=== PATIENT | male | born 1955 | race Caucasian/White ===

== ENCOUNTER 2017-01-25 12:26 | Emergency (ER) | payer OTHER ==
[~2017-01-25] VITALS: Ht 185.4 cm; Wt 90.7 kg
[~2017-01-25 12:26] MED LIST: ALPRAZOLAM PO; MEDROL PO; OXYCONTIN PO; PEPCID PO; PRILOSEC PO; TEGRETOL100 MG PO; [UNRECOGNIZED DRUG - REMARK]
== END 2017-01-25 12:57 | disposition home or self-care (01) ==
LOC: CED 12:26
DX: F15.122 Other stimulant abuse with intoxication with perceptual disturbance (principal); I10 Essential (primary) hypertension
CPT/HCPCS: 99283